=== PATIENT | male | born 1990 | race Caucasian/White ===

== ENCOUNTER 2019-05-01 23:57 | Emergency (ER) | payer SELFPAY ==
[~2019-05-01] VITALS: Ht 188 cm; Wt 140.6 kg
[2019-05-02 00:02] VITALS: Ht 188 cm; Wt 140.6 kg
[2019-05-02 02:29] VITALS: BP 132/82
== END 2019-05-02 00:15 | disposition left against medical advice (07) ==
LOC: ED 23:57
DX: R56.9 Unspecified convulsions (principal); R41.0 Disorientation, unspecified; J45.909 Unspecified asthma, uncomplicated